=== PATIENT | female | born 1990 | race Asian ===

== ENCOUNTER 2024-02-19 14:05 | Day surgery (SDC) | payer OTHER, SELFPAY ==
[2024-02-19] MEDS: LACTATED RINGERS 1,000 ML 100 ML IV (14:17)
--- NOTE | 2024-02-19 14:21 | PM.HP.1 ---
History of Present Illness History of Present Illness Date Patient Seen: 02/19/24 Time Patient Seen: 14:21 Chief complaint: Colonoscopy Narrative: Hermann is a 34-year-old woman who presents with rectal bleeding. See the office note from January for details. [facility] Social History Smoking Status: Never smoker Meds Home Medications and Allergies Home Medications Medication Instructions Recorded Confirmed Type peg 3350-electrolytes 236 240 ml PO Q10M #4,000 mL 01/09/24 Rx gram-22.74 gram-6.74 gram-5.86 gram solution (Golytely) Allergies Allergy/AdvReac Type Severity Reaction Status Date / Time No Known Drug Allergies Allergy Verified 02/19/24 14:21 Exam Const General: No acute distress Resp Effort & Inspection: normal respiratory effort Assessment & Plan Assessment and plan (1) Hemorrhoids: Qualifiers: Hemorrhoid type: second degree Qualified Code(s): K64.1 - Second degree hemorrhoids Status: Acute (2) Rectal bleeding: Status: Acute Plan We reviewed the risks and benefits of colonoscopy for rectal bleeding and rubber-band ligation for internal hemorrhoids and she would like to proceed.
[2024-02-19 14:22] VITALS: BP 113/70; PULSE 66; RESP 18; TEMP 36.6; O2SAT 99
--- NOTE | 2024-02-19 14:59 | PM.OP.COLON ---
Operative Date/Time/Diagnoses Date of procedure: 02/19/24 Time of procedure: 14:59 Pre-op diagnosis: Rectal bleeding Post-op diagnosis: same Procedure & Clinicians Study performed: Colonoscopy Same procedure as scheduled: Yes Surgeon: Da Christine Procedure Notes Procedure in detail: Surgeon: Da Christine MD Anesthesia: Srinivasa Spears MD Procedure: The patient was brought to the endoscopy suite, placed in left lateral decubitus position. The patient was connected to monitoring devices. A time-out was performed. Sedation was administered. Once the patient was adequately sedated, a digital rectal exam was performed and was normal. The scope was then inserted and advanced to the cecum where the appendiceal orifice was identified and photographed. The scope was then slowly withdrawn over greater than 6 minutes. The mucosa was thoroughly inspected. No abnormalities were identified. The scope was retroflexed in the rectum. There were some mild internal hemorrhoids. The scope was straightened and removed. The patient was awakened and brought to recovery. Scope withdrawal time: 6 minutes Sedation time: 19 minutes EBL: 0 Findings: Mild internal hemorrhoids Post-procedure Disposition: PACU
[2024-02-19 15:03] VITALS: BP 112/74; PULSE 58; RESP 17; O2SAT 100
[2024-02-19 15:04] VITALS: BP 105/63; PULSE 58; RESP 15; TEMP 36.5; O2SAT 100
[2024-02-19 15:06] VITALS: BP 114/72; PULSE 57; RESP 20; O2SAT 100
[2024-02-19 15:09] VITALS: BP 116/73; PULSE 59; RESP 17; O2SAT 97
[2024-02-19 15:17] VITALS: BP 120/79; PULSE 59; RESP 16; O2SAT 98
== END 2024-02-19 15:33 | disposition home or self-care (01) ==
PROVIDERS: Referring Provider Surgery; Visit Provider Surgery
PROC: 0DJD8ZZ Inspection of Lower Intestinal Tract, Via Natural or Artificial Opening Endoscopic (ICD-10-PCS; CPT 45378; principal; 2024-02-19 15:00)
DX: K64.8 Other hemorrhoids (principal)
CPT/HCPCS: 45378; J2704

== ENCOUNTER → 2024-10-21 18:49 | Outpatient (CLI) | payer OTHER, SELFPAY ==
--- NOTE | 2024-10-21 18:51 | DI.MRI.S_ITS ---
PROCEDURE: MR BRAIN (PITUITARY) WWO CON INDICATIONS: Please evaluate for pituitary mass TECHNIQUE: Noncontrast sagittal and axial FLAIR, axial gradient echo, axial diffusion and ADC through the brain. Thin-slice sagittal and coronal T1 spin echo, coronal T2 fast spin echo through the pituitary. After the administration contrast, optional dynamic coronal T1 spin echo, thin-slice coronal and sagittal T1 spin echo images through the pituitary fossa; axial and coronal and sagittal T1 spin echo with fat saturation through the brain. COMPARISON: None. FINDINGS: Image quality: Excellent. Pituitary Gland: The pituitary gland demonstrates normal signal and bulk. On the postcontrast imaging, no masses or abnormally enhancing areas are seen. The pituitary stalk and infundibulum have an unremarkable appearance. A normal appearing pituitary bright spot is seen posteriorly on the precontrast sagittal T1-weighted images. The optic chiasm and the ventral forebrain have an unremarkable appearance. CSF Spaces: Ventricles are normal in size and shape. Basal cisterns are patent. No extra-axial fluid collections. Brain: No intracranial bleeds or mass effects. No abnormal intracranial enhancement. Albright-white matter interface is intact. Diffusion weighted images demonstrate no acute ischemic insults. Brainstem is normal. Normal intravascular flow voids are present. Skull and face: Calvarial marrow is normal in signal. Orbits appear normal. Sinuses: Sinuses and mastoids are clear. IMPRESSION: Normal pituitary, without masses or abnormal enhancement seen to suggest a cause of the patient's presenting symptoms. Dictated by: Milo Degroot M.D. on 10/22/2024 at 12:15 Approved by: Milo Degroot M.D. on 10/22/2024 at 12:16
== END ==
LOC: MRI 18:50
DX: R89.1 Abnormal level of hormones in specimens from other organs, systems and tissues (principal)
CPT/HCPCS: 70553; A9579